=== PATIENT | male | born 1960 | race Caucasian/White ===

== ENCOUNTER 2018-05-05 08:11 | Emergency (ER) | payer SELFPAY ==
[2018-05-05] MEDS: HYDROCODONE/APAP (5/325) TAB PO (08:50)
[2018-05-05] MEDS: DIPHTH/TET/ACEL PERTUSS (ADULT) 0.5 ML VIAL IM* (08:53)
[2018-05-05] MEDS: LIDOCAINE 1% (MDV) 10 ML INJ INJ (08:58)
== END 2018-05-05 10:16 | disposition home or self-care (01) ==
LOC: FTE 08:11
DX: S61.210A Laceration without foreign body of right index finger without damage to nail, initial encounter (principal); F17.210 Nicotine dependence, cigarettes, uncomplicated; W26.0XXA Contact with knife, initial encounter; Y92.9 Unspecified place or not applicable; Z23 Encounter for immunization
CPT/HCPCS: 12001; 90471; 90715; 99283-25

== ENCOUNTER 2018-05-07 12:23 | Emergency (ER) | payer SELFPAY | END 2018-05-07 13:50 | disposition home or self-care (01) | LOC: FTE 12:23 | DX: Z48.01 Encounter for change or removal of surgical wound dressing (principal); F17.210 Nicotine dependence, cigarettes, uncomplicated | CPT/HCPCS: 99281 ==

== ENCOUNTER 2018-05-16 13:40 | Emergency (ER) | payer SELFPAY | END 2018-05-16 14:47 | disposition home or self-care (01) | LOC: FTE 13:40 | DX: Z48.02 Encounter for removal of sutures (principal); F17.210 Nicotine dependence, cigarettes, uncomplicated | CPT/HCPCS: 99281 ==